=== PATIENT | female | born 1965 | race African-American/Black ===

== ENCOUNTER 2017-10-21 09:10 | Observation (INO) | payer OTHER ==
[~2017-10-21] VITALS: Ht 170.2 cm; Wt 78.0 kg
[2017-10-21 09:12] VITALS: BP 170/86; PULSE 62; RESP 20; TEMP 98.3; O2SAT 100
[2017-10-21 09:35] VITALS: O2SAT 96
[2017-10-21] MEDS ORDERED: SODIUM CHLORIDE 0.9% FLUSH 10 ML FLUSH IVF PRN (09:45)
[2017-10-21 10:10] LABS: AUTOMATED NEUTROPHIL # 1.7 TH/MM3 (1.8-7.7); BASOPHIL % 0.4 % (0.0-2.0); EOSINOPHIL # 0.1 TH/MM3 (0-0.4); HEMATOCRIT 38.5 % (35.0-46.0); HEMOGLOBIN 13.5 GM/DL (11.6-15.3); LYMPH % 34.5 % (9.0-44.0); MEAN CELL VOLUME 81.3 FL (80.0-100.0); MEAN CORPUSCULAR HEMOGLOBIN 28.6 PG (27.0-34.0); MEAN CORPUSCULAR HGB CONC 35.2 % (32.0-36.0); MEAN PLATELET VOLUME 8.1 FL (7.0-11.0); MONO % 4.3 % (0.0-8.0); MONOCYTE # 0.1 TH/MM3 (0-0.9); NEUT % 58.8 % (16.0-70.0); PLATELET COUNT 211 TH/MM3 (150-450); RED BLOOD COUNT 4.74 MIL/MM3 (4.00-5.30); RED CELL DISTRIBUTION WIDTH 13.4 % (11.6-17.2); WHITE BLOOD COUNT 2.8 TH/MM3 (4.0-11.0)
--- NOTE | 2017-10-21 10:14 | RADRPT ---
EXAM DATE/TIME: 10/21/2017 10:00 [facility] COMPARISON: No previous studies available for comparison. INDICATIONS : Patient states shortness of breath. MEDICAL HISTORY : Hypertension. SURGICAL HISTORY : None. ENCOUNTER: Initial ACUITY: 2 days PAIN SCORE: 4/10 LOCATION: Bilateral chest FINDINGS: PA and lateral views of the chest demonstrate the lungs to be symmetrically aerated without evidence of mass, infiltrate or effusion. The cardiomediastinal contours are unremarkable. Osseous structure s are intact. CONCLUSION: 1. No acute cardiopulmonary disease. Fernando Schwab MD on October 21, 2017 at 10:11 Board Certified Radiologist. This report was verified electronically.
[2017-10-21 10:27] LABS: INTERNATIONAL NORMALIZED RATIO 1.1 RATIO; PROTHROMBIN TIME - PATIENT 10.9 SEC (9.8-11.6)
[2017-10-21 10:28] LABS: D-DIMER 0.21 MG/L FEU (0.00-0.50)
[2017-10-21 10:32] LABS: ALBUMIN 3.7 GM/DL (3.4-5.0); AST (GOT) 31 U/L (15-37); BICARBONATE 28.3 MEQ/L (21.0-32.0); BLOOD UREA NITROGEN 8 MG/DL (7-18); CALCIUM 9.2 MG/DL (8.5-10.1); CHLORIDE 107 MEQ/L (98-107); GLOMERULAR FILTRATION RATE 91 ML/MIN (>89); GLUCOSE,RANDOM 83 MG/DL (74-106); SODIUM (NA) 142 MEQ/L (136-145)
[2017-10-21 10:33] LABS: ALT (GPT) 39 U/L (10-53)
[2017-10-21 10:36] LABS: ALKALINE PHOSPHATASE 73 U/L (45-117); TOTAL BILIRUBIN ADULT 0.7 MG/DL (0.2-1.0); TOTAL PROTEIN 8.2 GM/DL (6.4-8.2); TROPONIN I LESS THAN 0.02 NG/ML (0.02-0.05)
--- NOTE | 2017-10-21 11:05 | RADRPT ---
EXAM DATE/TIME: 10/21/2017 10:04 [facility] COMPARISON: No previous studies available for comparison. INDICATIONS : Lower extremity numbness RADIATION DOSE: 32.12 CTDIvol (mGy) MEDICAL HISTORY : None SURGICAL HISTORY : None. ENCOUNTER: Initial ACUITY: 1 day PAIN SCALE: 0/10 LOCATION: cranial TECHNIQUE: Multiple contiguous axial images were obtained of the head. Using automated exposure control and adj ustment of the mA and/or kV according to patient size, radiation dose was kept as low as reasonably a chievable to obtain optimal diagnostic quality images. DICOM format image data is available electro nically for review and comparison. FINDINGS: CEREBRUM: The ventricles are normal for age. No evidence of midline shift, mass lesion, hemorrhage or acute in farction. No extra-axial fluid collections are seen. POSTERIOR FOSSA: The cerebellum and brainstem are intact. The 4th ventricle is midline. The cerebellopontine angle i s unremarkable. EXTRACRANIAL: The visualized portion of the orbits is intact. SKULL: The calvaria is intact. No evidence of skull fracture. CONCLUSION: Negative exam. Gurpreet Triana MD on October 21, 2017 at 11:02 Board Certified Radiologist. This report was verified electronically.
[2017-10-21 11:10] LABS: FREE T3 3.27 PG/ML (2.18-3.98); FREE T4 1.02 NG/DL (0.76-1.46)
[2017-10-21] MEDS ORDERED: ASPIRIN 325 MG TAB PO ONE (11:15)
--- NOTE | 2017-10-21 11:15 | PD ---
HPI Chief Complaint: Cardiac Complaint Time Seen by Provider: 09:35 Travel History International Travel<30 days: No Contact w/Intl Traveler<30days: No Traveled to known affect area: No History of Present Illness HPI Patient presents to the emergency department complaining of irregular heartbeat. States that the symptoms have been ongoing intermittent since 1987. Advised by her doctor to stay away from caffeine, but she is unsure what the diagnosis. Also told that she had a leaky valve. She is on vacation and she has been in the area for 2 weeks. She denies fever, chills, nausea, vomiting, lower extremity edema, no current chest pain. She is reporting headache that resolved earlier this morning and feeling numbness in her right leg that has been present for about 2 weeks. She has no chest pain now she states that she was having substernal chest pain with radiation to the right side in her back, worse with deep breathing, rest alleviated the pain, no aggravating factors. PFSH Past Medical History ?: Unknown Social History Alcohol Use: Yes Tobacco Use: No Substance Use: No Allergies-Medications (Allergen,Severity, Reaction): Coded Allergies: No Known Allergies (Unverified , 10/21/17) Reported Meds & Prescriptions Reported Meds & Active Scripts Active No Active Prescriptions or Reported Medications Review of Systems Except as stated in HPI: all other systems reviewed are Neg Physical Exam Narrative GENERAL: No acute distress. SKIN: Focused skin assessment warm/dry. HEAD: Atraumatic. Normocephalic. EYES: Pupils equal and round. Ocular muscles intact bilaterally. No scleral icterus. No injection or drainage. ENT: No nasal bleeding or discharge. Mucous membranes pink and moist. NECK: Trachea midline. No JVD. CARDIOVASCULAR: Regular rate and rhythm. No murmur appreciated. RESPIRATORY: No accessory muscle use. Clear to auscultation. Breath sounds equal bilaterally. GASTROINTESTINAL: Abdomen soft, non-tender, nondistended. Hepatic and splenic margins not palpable. MUSCULOSKELETAL: No obvious deformities. No clubbing. No cyanosis. No edema. NEUROLOGICAL: Awake and alert. No obvious cranial nerve deficits. Motor grossly within normal limits. Normal speech. Decreased sensation right leg compared to left. PSYCHIATRIC: Appropriate mood and affect; insight and judgment normal. Data Data Last Documented VS Vital Signs Date Time Temp Pulse Resp B/P (MAP) Pulse Ox O2 Delivery O2 Flow Rate FiO2 10/21/17 09:12 98.3 62 20 170/86 (114) 100 Orders Orders Electrocardiogram (10/21/17 09:44) B-Type Natriuretic Peptide (10/21/17 09:44) Ckmb (Isoenzyme) Profile (10/21/17 09:44) Complete Blood Count With Diff (10/21/17 09:44) Comprehensive Metabolic Panel (10/21/17 09:44) D-Dimer (10/21/17 09:44) Magnesium (Mg) (10/21/17 09:44) Prothrombin Time / Inr (Pt) (10/21/17 09:44) Act Partial Throm Time (Ptt) (10/21/17 09:44) Troponin I (10/21/17:44) Ecg Monitoring (10/21/17:44) Iv Access Insert/Monitor (10/21/17 09:44) Oximetry (10/21/17 09:44) Sodium Chloride 0.9% Flush (Ns Flush) (10/21/17 09:45) Chest, Pa & Lat (10/21/17 09:44) Thyroid Stimulating Hormone (10/21/17 09:44) Free Thyroxine (T4) (10/21/17 09:44) Free T3 (10/21/17 09:44) Ct Brain W/O Iv Contrast(Rout) (10/21/17 09:44) CKMB (10/21/17 08:40) CKMB% (10/21/17 08:40) Aspirin (Aspirin) (10/21/17 11:15) Admit Order (Ed Use Only) (10/21/17 11:17) Labs Laboratory Tests Test 10/21/17 08:40 White Blood Count 2.8 TH/MM3 Red Blood Count 4.74 MIL/MM3 Hemoglobin 13.5 GM/DL Hematocrit 38.5 % Mean Corpuscular Volume 81.3 FL Mean Corpuscular Hemoglobin 28.6 PG Mean Corpuscular Hemoglobin Concent 35.2 % Red Cell Distribution Width 13.4 % Platelet Count 211 TH/MM3 Mean Platelet Volume 8.1 FL Neutrophils (%) (Auto) 58.8 % Lymphocytes (%) (Auto) 34.5 % Monocytes (%) (Auto) 4.3 % Eosinophils (%) (Auto) 2.0 % Basophils (%) (Auto) 0.4 % Neutrophils # (Auto) 1.7 TH/MM3 Lymphocytes # (Auto) 1.0 TH/MM3 Monocytes # (Auto) 0.1 TH/MM3 Eosinophils # (Auto) 0.1 TH/MM3 Basophils # (Auto) 0.0 TH/MM3 CBC Comment DIFF FINAL Differential Comment Prothrombin Time 10.9 SEC Prothromb Time International Ratio 1.1 RATIO Activated Partial Thromboplast Time 27.1 SEC D-Dimer Quantitative (PE/DVT) 0.21 MG/L FEU Blood Urea Nitrogen 8 MG/DL Creatinine 0.80 MG/DL Random Glucose 83 MG/DL Total Protein 8.2 GM/DL Albumin 3.7 GM/DL Calcium Level 9.2 MG/DL Magnesium Level 2.0 MG/DL Alkaline Phosphatase 73 U/L Aspartate Amino Transf (AST/SGOT) 31 U/L Alanine Aminotransferase (ALT/SGPT) 39 U/L Total Bilirubin 0.7 MG/DL Sodium Level 142 MEQ/L Potassium Level 3.6 MEQ/L Chloride Level 107 MEQ/L Carbon Dioxide Level 28.3 MEQ/L Anion Gap 7 MEQ/L Estimat Glomerular Filtration Rate 91 ML/MIN Total Creatine Kinase 123 U/L Creatine Kinase MB 0.9 NG/ML Troponin I LESS THAN 0.02 NG/ML B-Type Natriuretic Peptide 9 PG/ML Free Thyroxine 1.02 NG/DL Free Triiodothyronine (T3) pg/dL 3.27 PG/ML Thyroid Stimulating Hormone 3rd Gen 2.250 uIU/ML MDM Medical Decision Making Medical Screen Exam Complete: Yes Emergency Medical Condition: Yes Interpretation(s) ECG: Sinus bradycardia, rate 59, first-degree AV block Labs: Decreased WBC count CT head: FINDINGS: CEREBRUM: The ventricles are normal for age. No evidence of midline shift, mass lesion, hemorrhage or acute infarction. No extra-axial fluid collections are seen. POSTERIOR FOSSA: The cerebellum and brainstem are intact. The 4th ventricle is midline. The cerebellopontine angle is unremarkable. EXTRACRANIAL: The visualized portion of the orbits is intact. SKULL: The calvaria is intact. No evidence of skull fracture. CONCLUSION: Negative exam. Last Impressions Chest X-Ray 10/21/17 0944 Signed Impressions: Service Date/Time: Saturday, October 21, 2017 10:00 - CONCLUSION: 1. No acute cardiopulmonary disease. Fernando Schwab MD Differential Diagnosis Electrolyte abnormality, thyroid disease, arrhythmia, CVA, ACS Narrative Course Patient presents to the emergency department complaining of palpitations and intermittent substernal chest pain, and right leg numbness. Will check EKG, cardiac enzymes, coags and d-dimer, thyroid labs, magnesium, chest x-ray, and head CT. Head CT negative patient will be given aspirin 325 mg p.o. 1120: Admitted to chest pain observation Diagnosis Primary Impression: Palpitations Additional Impression: Chest pain Qualified Codes: R07.9 - Chest pain, unspecified Admitting Information Admitting Physician Requests: Observation Scripts No Active Prescriptions or Reported Meds Condition: Stable Melisa Tan MD October 21, 2017 11:15
[2017-10-21 11:52] VITALS: BP 184/73; PULSE 68; RESP 17; O2SAT 98
[2017-10-21] MEDS ORDERED: ACETAMINOPHEN 500 MG CPLT PO PRN (12:00)
[2017-10-21] MEDS ORDERED: ONDANSETRON ODT 4 MG TAB PO PRN (12:00)
[2017-10-21] MEDS ORDERED: NITROGLYCERIN 0.4 MG SL 25 TABS/BTL SL PRN (12:00)
--- NOTE | 2017-10-21 12:29 | HHI.HP ---
HPI Primary Care Physician Primary Care Physician in [facility] Chief Complaint Chest pain and palpitations History of Present Illness 51-year-old female without significant medical history presents emergency room for further evaluation of palpitations and accompanying chest pain. Endorses palpations since 1987, follows with a pantry attendant in [facility]. She is visiting daughter who resides here in [place]. Onset of symptoms past week. Location substernal. Characterized as irregular, slow heart beat, dizziness, and sharp chest pain. States "it feels like my heart is going to stop." Unable to give accurate duration of symptoms, stating "constant discomfort." No associated symptoms of nausea, vomiting, or diaphoresis. Experiences "slight" shortness of breath after walking briskly or up a flight of steps. This concerns her because she never experienced those symptoms before. Taking a deep breath seems to make sharp pains worse. No known relieving factors. Denies any current chest pain, feelings of irregular heart beat, or palpations. She arrived from [facility] 10/04/17 and plans to return home Saturday, stating "I want to make sure my heart is okay before my flight home." (Mariela Short) Review of Systems General: No fatigue,weakness, fever, chills, or recent illness. Has been her general state of health. HEENT: No RIOS, no vision changes, no nasal congestion or drainage, no dysphasia CV: As stated above. No current chest pain, pressure, or palpitations. Longstanding history of palpations and heart murmur, occasionally with accompanying dizziness, denies any LOC. RESP: No SOB, cough, wheeze GI: No nausea, vomiting, bowel changes, diarrhea, constipation, pain, distention , melena, or blood in the stool. : No dysuria, urgency, frequency EXT: No lower leg edema, no paraesthesias MS: No discomfort, injury, or change in ROM NEURO: No change in memory, dizziness, difficulty with balance, LOC, or motor/ sensory deficits PSYCH: No anxiety or depression SKIN: No rashes, no concerning lesions (Mariela Short) Past Family Social History Allergies: Coded Allergies: No Known Allergies (Unverified , 10/21/17) Past Medical History Gallstones, heart murmur Past Surgical History Hysterectomy Reported Medications Reported Meds & Active Scripts Active No Active Prescriptions or Reported Medications Occasional vitamin D supplementation Active Ordered Medications Current Medications Medications (Trade) Dose Ordered Sig/Boo Route Start Time Stop Time Status Last Admin (NS Flush) 2 ml UNSCH PRN IVF 10/21/17 09:45 (NS Flush) 2 ml BID IV FLUSH 10/21/17 21:00 (Tylenol) 500 mg Q4H PRN PO 10/21/17 12:00 (Zofran Odt) 4 mg Q6H PRN PO 10/21/17 12:00 (Nitrostat Sl) 0.4 mg Q5M PRN SL 10/21/17 12:00 (Aspirin) 325 mg DAILY PO 10/22/17 09:00 Family History Noncontributory for early onset cardiovascular disease Social History No known coronary artery disease, diabetes, or hyperlipidemia. Remotely told she is hypertensive, prescribed medication, never started medication stating "I was just under a lot of stress during that time." Lifelong non-smoker. Occasional alcohol use. Endorse a sedentary lifestyle. Visiting from [facility]. Past cardiac testing No recent stress testing. Follows with a pantry attendant in [facility] for long standing history of palpations, heart murmur, and fairly routine echocardiograms. Unable to recall what type of heart murmur or any information regarding need for routine echocardiograms. (Mariela Short) Physical Exam Vital Signs Vital Signs Date Time Temp Pulse Resp B/P (MAP) Pulse Ox O2 Delivery O2 Flow Rate FiO2 10/21/17 11:52 68 17 184/73 (110) 98 Room Air 10/21/17 11:52 98 21 10/21/17 09:35 96 Room Air 10/21/17 09:12 98.3 62 20 170/86 (114) 100 Physical Exam GENERAL: Alert WN, WD, NAD, pleasant, -[place] female HEAD: NC, AT EYES: Sclera clear, conjunctiva without injection, pupils equal and round ENT: Mucous membranes pink and moist, no nasal discharge or bleeding NECK: Supple, no masses, trachea midline CV: Bradycardic regular, rhythm, 2/6 systolic murmur, without rub or gallop, no JVD, S1-S2 no S3-S4. RESP: Clear lungs throughout bilateral, no crackles, wheeze, rhonchi, symmetrical chest rise, nonlabored, able to speak in full sentences ABD: Soft, NT, ND, no masses, positive bowel tones EXT: Pulses +2x4, no dependent edema MS: Normal tone x4 extremities, no obvious deformities, full range of motion NEURO: CN II through CN XII grossly intact, motor strength 5/5, gait WNL PSYCH: A+O x3, pleasant affect, appropriate speech, mood, insight and judgment SKIN: Normal turgor, normal texture, no lesions, no rashes Laboratory Laboratory Tests Test 10/21/17 08:40 10/21/17 12:00 White Blood Count 2.8 Red Blood Count 4.74 Hemoglobin 13.5 Hematocrit 38.5 Mean Corpuscular Volume 81.3 Mean Corpuscular Hemoglobin 28.6 Mean Corpuscular Hemoglobin Concent 35.2 Red Cell Distribution Width 13.4 Platelet Count 211 Mean Platelet Volume 8.1 Neutrophils (%) (Auto) 58.8 Lymphocytes (%) (Auto) 34.5 Monocytes (%) (Auto) 4.3 Eosinophils (%) (Auto) 2.0 Basophils (%) (Auto) 0.4 Neutrophils # (Auto) 1.7 Lymphocytes # (Auto) 1.0 Monocytes # (Auto) 0.1 Eosinophils # (Auto) 0.1 Basophils # (Auto) 0.0 CBC Comment DIFF FINAL Differential Comment Prothrombin Time 10.9 Prothromb Time International Ratio 1.1 Activated Partial Thromboplast Time 27.1 D-Dimer Quantitative (PE/DVT) 0.21 Blood Urea Nitrogen 8 Creatinine 0.80 Random Glucose 83 Total Protein 8.2 Albumin 3.7 Calcium Level 9.2 Magnesium Level 2.0 Alkaline Phosphatase 73 Aspartate Amino Transf (AST/SGOT) 31 Alanine Aminotransferase (ALT/SGPT) 39 Total Bilirubin 0.7 Sodium Level 142 Potassium Level 3.6 Chloride Level 107 Carbon Dioxide Level 28.3 Anion Gap 7 Estimat Glomerular Filtration Rate 91 Total Creatine Kinase 123 Creatine Kinase MB 0.9 Troponin I LESS THAN 0.02 B-Type Natriuretic Peptide 9 Free Thyroxine 1.02 Free Triiodothyronine (T3) pg/dL 3.27 Thyroid Stimulating Hormone 3rd Gen 2.250 (Mariela Short) Result Diagram: 10/21/1740 10/21/17 0840 Imaging Last [address] 10/21/17 0944 Signed Impressions: Service Date/Time: Saturday, October 21, 2017 10:04 - CONCLUSION: Negative exam. Gurpreet Triana MD Chest X-Ray 10/21/17 0944 Signed Impressions: Service Date/Time: Saturday, October 21, 2017 10:00 - CONCLUSION: 1. No acute cardiopulmonary disease. Fernando Schwab MD Course EKG Cardiovascular first-degree AV block, no ST-T segment changes (Mariela Short) Caprini VTE Risk Assessment Caprini VTE Risk Assessment: No/Low Risk (score <= 1) Caprini Risk Assessment Model Point Value = 1 Point Value = 2 Point Value = 3 Point Value = 5 Age 41-60 Minor surgery BMI > 25 kg/m2 Swollen legs Varicose veins or History of unexplained or recurrent spontaneous Oral contraceptives or hormone replacement Sepsis (< 1 month) Serious lung disease, including pneumonia (< 1 month) Abnormal pulmonary function Acute myocardial infarction Congestive heart failure (< 1 month) History of inflammatory bowel disease Medical patient at bed rest Age 61-74 Arthroscopic surgery Major open surgery (> 45 min) Laparoscopic surgery (> 45 min) Malignancy Confined to bed (> 72 hours) Immobilizing plaster cast Central venous access Age >= 75 History of VTE Family history of VTE Factor V Leiden Prothrombin [id number] Lupus anticoagulant Anticardiolipin antibodies Elevated serum homocysteine Heparin-induced thrombocytopenia Other congenital or acquired thrombophilia Stroke (< 1 month) Elective arthroplasty Hip, pelvis, or leg fracture Acute spinal cord injury (< 1 month) Prophylaxis Regimen Total Risk Factor Score Risk Level Prophylaxis Regimen 0-1 Low Early ambulation 2 Moderate Order ONE of the following: *Sequential Compression Device (SCD) *Heparin 5000 units SQ BID 3-4 Higher Order ONE of the following medications: *Heparin 5000 units SQ TID *Enoxaparin/Lovenox 40 mg SQ daily (WT < 150 kg, CrCl > 30 mL/min) *Enoxaparin/Lovenox 30 mg SQ daily (WT < 150 kg, CrCl > 10-29 mL/min) *Enoxaparin/Lovenox 30 mg SQ BID (WT < 150 kg, CrCl > 30 mL/min) AND/OR *Sequential Compression Device (SCD) 5 or more Highest Order ONE of the following medications: *Heparin 5000 units SQ TID (Preferred with Epidurals) *Enoxaparin/Lovenox 40 mg SQ daily (WT < 150 kg, CrCl > 30 mL/min) *Enoxaparin/Lovenox 30 mg SQ daily (WT < 150 kg, CrCl > 10-29 mL/min) *Enoxaparin/Lovenox 30 mg SQ BID (WT < 150 kg, CrCl > 30 mL/min) AND *Sequential Compression Device (SCD) (Mariela Short) Assessment and Plan Assessment and Plan #1 Atypical chest pain-no chest pain center. Rule out 3 sets of EKGs, cardiac enzymes, monitor on telemetry. Will be seen and evaluated by Dr. Tenzin Gaviria. #2 Hypertension-continue to monitor, consider amlodipine 5 mg p.o. daily (Mariela Short) Assessment and Plan Patient seen and examined. Will plan ETT (Tenzin Gaviria MD) Mariela Short October 21, 2017 12:29 Tenzin Gaviria MD October 21, 2017 16:29
[2017-10-21 12:49] LABS: TROPONIN I LESS THAN 0.02 NG/ML (0.02-0.05)
[2017-10-21] MEDS ORDERED: amLODIPine BESYLATE 5 MG TAB PO ONE (13:30)
[2017-10-21 13:33] VITALS: BP 147/86; PULSE 43; RESP 18
[2017-10-21 15:50] LABS: TROPONIN I LESS THAN 0.02 NG/ML (0.02-0.05)
[2017-10-21 17:01] VITALS: BP 137/88; PULSE 59; RESP 16; TEMP 97.8; O2SAT 100
--- NOTE | 2017-10-21 18:18 | HHI.DCPOC ---
Discharge Care Plan Diagnosis: (1) Atypical chest pain (2) Hypertension Goals to Promote Your Health * To prevent worsening of your condition and complications * To maintain your health at the optimal level Directions to Meet Your Goals Take your medications as prescribed Follow your dietary instruction Follow activity as directed Keep your appointments as scheduled Take your immunizations and boosters as scheduled If your symptoms worsen call your PCP, if no PCP go to Urgent Care Center or Emergency Room Smoking is Dangerous to Your Health. Avoid second hand smoke Call the 24-hour hour crisis hotline for domestic abuse at Mariela Short October 21, 2017 18:18
[2017-10-21] MEDS ORDERED: HYDR25TA5 PO (18:19)
--- NOTE | 2017-10-21 18:20 | HHI.DCPOC ---
Discharge Care Plan Diagnosis: (1) Atypical chest pain (2) Hypertension (3) Palpitations Goals to Promote Your Health * To prevent worsening of your condition and complications * To maintain your health at the optimal level Directions to Meet Your Goals Take your medications as prescribed Follow your dietary instruction Follow activity as directed Keep your appointments as scheduled Take your immunizations and boosters as scheduled If your symptoms worsen call your PCP, if no PCP go to Urgent Care Center or Emergency Room Smoking is Dangerous to Your Health. Avoid second hand smoke Call the 24-hour hour crisis hotline for domestic abuse at Mariela Short October 21, 2017 18:20
[2017-10-21] MEDS ORDERED: SODIUM CHLORIDE 0.9% FLUSH 10 ML FLUSH IV FLUSH SCH (21:00)
--- NOTE | 2017-10-22 08:47 | EKG ---
Date Performed: 10/21/2017 Time Performed: 12:21:03 PTAGE: 51 years EKG: SINUS BRADYCARDIA WITH FIRST DEGREE AV BLOCK ABNORMAL ECG Since PREVIOUS TRACING , no significant change noted DOCTOR: Brook Law Interpretating Date/Time 10/22/2017 08:46:12
--- NOTE | 2017-10-22 08:48 | EKG ---
Date Performed: 10/21/2017 Time Performed: 14:59:54 PTAGE: 51 years EKG: SINUS BRADYCARDIA WITH FIRST DEGREE AV BLOCK ABNORMAL ECG Since PREVIOUS TRACING , no significant change noted DOCTOR: Brook Law Interpretating Date/Time 10/22/2017 08:47:54
--- NOTE | 2017-10-22 08:51 | TR ---
Date Performed: 10/21/2017 Time Performed: 17:20:26 DOCTOR: Brook Law DRUG LIST: CLINICAL HISTORY: REASON FOR TEST: Chest PAIN, PALPITATIONS REASON FOR ENDING: OBSERVATION: CONCLUSION: Krishna protocol completed. Stopped sec to exceeding target heart rate and leg fatigue . Maximum JP=914 Target HR Achieved=90.0% Maximum RU=600/104 Total Exercise Time=8:31. No reprod ches t pain. No ectopy. Good exercise tolerance. No st t segment changes to sugg ischemia, st t segments a re nondiagnostic. Normal bp response. Recovery quick and unremarkable. COMMENTS: No definitive ischemia
--- NOTE | 2017-10-22 08:53 | EKG ---
Date Performed: 10/21/2017 Time Performed: 09:23:09 PTAGE: 51 years EKG: SINUS BRADYCARDIA WITH FIRST DEGREE AV BLOCK ABNORMAL ECG NO PREVIOUS TRACING DOCTOR: Brook Law Interpretating Date/Time 10/22/2017 08:52:28
[2017-10-22] MEDS ORDERED: ASPIRIN 325 MG TAB PO SCH (09:00)
== END 2017-10-21 19:31 | disposition home or self-care (01) ==
LOC: NEPE 09:10 → NEDA 11:19 → NEPFCDU 12:01
PROVIDERS: ADMIT Internal Medicine Cardiovascular Disease; ATTEND Internal Medicine Cardiovascular Disease
DX: R07.89 Other chest pain (principal); I10 Essential (primary) hypertension; R42 Dizziness and giddiness; R00.1 Bradycardia, unspecified; R00.2 Palpitations; I44.0 Atrioventricular block, first degree; R94.31 Abnormal electrocardiogram [ECG] [EKG]
CPT/HCPCS: 70450; 71046; 80053; 82550; 82552; 83735; 83880; 84439; 84443; 84481; 84484; 85025; 85379; 85610; 85730; 93005; 93017; 99285; G0378